=== PATIENT | female | born 1990 | race Caucasian/White ===

== ENCOUNTER 2017-11-29 15:21 | Emergency (ER) | payer SELFPAY ==
--- NOTE | 2017-11-29 16:04 | ER Report ---
History and Physical Time Seen By MD: 16:03 Hx. of Stated Complaint: Pt c/o onset of abdominal pain, vomiting x3 and GALLEGOS since 12:30 p.m. (KAYLEIGH RUSSELL MD) HPI/ROS CHIEF COMPLAINT: Abdominal pain, nausea HISTORY OF PRESENT ILLNESS: This is a 27 rolled female. She has had ongoing nausea and vomiting with some abdominal pain. No diarrhea. No blood in the stools. She did eat a significant amount of food at a restaurant last night for dinner, so she may have had some bad food exposure. No other family members or friends are sick. No [id number] medication usage. No fevers or chills. Denies any chest pain or shortness of breath at this time. Nothing makes the abdominal pain worse or better. (KAYLEIGH RUSSELL MD) Allergies: Coded Allergies: No Known Drug Allergies (Unverified , 11/29/17) Home Meds Active Scripts Ondansetron (ZOFRAN ODT) 4 Mg Tab.rapdis, 4 MG PO every 6 hours PRN for NAUSEA/VOMITING, #10 TAB TAKE 1 TABLET BY MOUTH EVERY 12 HOURS Prov:DONNIE SHIPLEY DO 11/29/17 Hydrocodone Bit/Acetaminophen (HYDROCODON-ACETAMINOPHEN 5-325) 1 Each Tablet, 1 EACH PO Q4-6H PRN for PAIN, #12 TAKE ONE TABLET BY MOUTH EVERY 4-6 HOURS NEEDED FOR PAIN Prov:DONNIE SHIPLEY DO 11/29/17 Reviewed Nurses Notes: Yes (KAYLEIGH RUSSELL MD) Constitutional Vital Sign - Last 24 Hours 11/29/17 11/29/17 11/29/17 11/29/17 15:21 15:36 15:40 15:40 Temp 97.9 Pulse ? 79 Resp 16 B/P (MAP) 121/75 (90) 121/76 Pulse Ox 96 O2 Delivery Room Air 11/29/17 11/29/17 11/29/17 11/29/17 15:51 16:06 16:21 16:36 Pulse 78 83 79 79 Pulse Ox 97 97 97 97 11/29/17 11/29/17 11/29/17 11/29/17 16:51 17:06 17:11 17:26 Pulse 81 79 81 83 Pulse Ox 96 97 95 97 11/29/17 11/29/17 11/29/17 10/20/18 17:31 17:41 17:56 18:00 Pulse 84 77 B/P (MAP) 100/62 (75) ???/??? (1664) Pulse Ox 96 96 11/29/17 11/29/17 11/29/17 11/29/17 18:11 18:26 18:30 18:41 Pulse ??? 78 83 B/P (MAP) ???/??? (1664) Pulse Ox 94 93 11/29/17 11/29/17 18:56 19:00 Pulse ??? B/P (MAP) ???/??? (1664) (DONNIE SHIPLEY DO) Physical Exam General Appearance: The patient is alert. No acute distress. Non-toxic in appearance. Eyes: Pupils are equal, round. No pallor, injection or icterus. ENT: Mucous membranes are moist. Normal oral mucosa. Posterior oropharynx is normal. Neck: Supple and non tender. Respiratory: Lungs are clear to auscultation. Cardiovascular: Regular rate and rhythm. No murmurs, gallops or rubs. Normal capillary refill. Gastrointestinal: Abdomen is soft, tender along the midline worse in the periumbilical area, no pain in the upper or lower quadrants. Nondistended. No masses or organomegaly. Hyperactive bowel sounds. No costovertebral angle tenderness with percussion. Neurological: Alert and oriented x3. No focal neurologic deficits Skin: Warm and dry. No rashes. Musculoskeletal: Extremities are nontender. No tenderness in palpation of the cervical, thoracic and lumbar spine. DIFFERENTIAL DIAGNOSIS: After history and physical exam, differential diagnosis was considered for abdominal pain including but not limited to appendicitis, cholecystitis, gastritis and urinary tract infection. ([facility] SERVICES[facility]LEIGH MD) Medical Decision Making Data Points Result Diagram: 11/29/17 1600 11/29/17 1600 Laboratory Hematology Test 11/29/17 00:00 11/29/17 16:00 Human Chorionic Gonadotropin, Qual Negative (NEGATIVE) Red Blood Count 5.08 M/uL (4.17-5.56) Mean Corpuscular Volume 88.3 fL (80.0-96.0) Mean Corpuscular Hemoglobin 30.3 pg (26.0-33.0) Mean Corpuscular Hemoglobin Concent 34.2 g/dL (32.0-36.0) Red Cell Distribution Width 13.1 % (11.5-14.5) Mean Platelet Volume 8.3 fL (7.2-11.1) Neutrophils (%) (Auto) 87.3 % (39.4-72.5) Lymphocytes (%) (Auto) 6.9 % (17.6-49.6) Monocytes (%) (Auto) 5.3 % (4.1-12.4) Eosinophils (%) (Auto) 0.1 % (0.4-6.7) Basophils (%) (Auto) 0.4 % (0.3-1.4) Nucleated RBC Relative Count (auto) 0.0 /100WBC Neutrophils # (Auto) 8.6 K/uL (2.0-7.4) Lymphocytes # (Auto) 0.7 K/uL (1.3-3.6) Monocytes # (Auto) 0.5 K/uL (0.3-1.0) Eosinophils # (Auto) 0.0 K/uL (0.0-0.5) Basophils # (Auto) 0.0 K/uL (0.0-0.1) Nucleated RBC Absolute Count (auto) 0.00 K/uL Urine Color Yellow Urine Clarity Cloudy Urine pH 5.0 pH (4.8-9.5) Urine Specific [place] 1.024 Urine Protein Negative mg/dL (NEGATIVE) Urine Glucose (UA) Negative mg/dL (NEGATIVE) Urine Ketones Negative mg/dL (NEGATIVE) Urine Blood Moderate (NEGATIVE) Urine Nitrite Negative (NEGATIVE) Urine Bilirubin Negative (NEGATIVE) Urine Urobilinogen Negative mg/dL (0.2-1.9) Urine Leukocyte Esterase Trace (NEGATIVE) Urine RBC 6 /HPF (0-2/HPF) Urine WBC 8 /HPF (0-5/HPF) Urine Squamous Epithelial Cells Many /LPF (</=FEW) Urine Bacteria Negative /HPF (NONE-FEW) Urine Mucus Few /HPF (NONE-FEW) Sodium Level 138 mmol/L (137-145) Potassium Level 3.6 mmol/L (3.5-5.0) Chloride Level 103 mmol/L (98-107) Carbon Dioxide Level 24 mmol/L (22-31) Blood Urea Nitrogen 12 mg/dl (7-18) Creatinine 0.60 mg/dl (0.52-1.04) Glomerular Filtration Rate Calc > 60.0 Random Glucose 100 mg/dl (75-110) Calcium Level 9.0 mg/dl (8.4-10.2) Total Bilirubin 0.7 mg/dl (0.2-1.3) Aspartate Amino Transf (AST/SGOT) 21 U/L (0-35) Alanine Aminotransferase (ALT/SGPT) 24 U/L (0-56) Alkaline Phosphatase 55 U/L (0-126) Total Protein 7.8 g/dl (6.3-8.2) Albumin 4.4 g/dl (3.5-5.0) Amylase Level 97 U/L (0-110) Lipase 70 U/L (23-300) Chemistry Test 11/29/17 00:00 11/29/17 16:00 Human Chorionic Gonadotropin, Qual Negative (NEGATIVE) White Blood Count 9.8 k/uL (4.5-11.0) Red Blood Count 5.08 M/uL (4.17-5.56) Hemoglobin 15.4 g/dL (12.0-16.0) Hematocrit 44.8 % (34.0-47.0) Mean Corpuscular Volume 88.3 fL (80.0-96.0) Mean Corpuscular Hemoglobin 30.3 pg (26.0-33.0) Mean Corpuscular Hemoglobin Concent 34.2 g/dL (32.0-36.0) Red Cell Distribution Width 13.1 % (11.5-14.5) Platelet Count 203 K/uL (150-450) Mean Platelet Volume 8.3 fL (7.2-11.1) Neutrophils (%) (Auto) 87.3 % (39.4-72.5) Lymphocytes (%) (Auto) 6.9 % (17.6-49.6) Monocytes (%) (Auto) 5.3 % (4.1-12.4) Eosinophils (%) (Auto) 0.1 % (0.4-6.7) Basophils (%) (Auto) 0.4 % (0.3-1.4) Nucleated RBC Relative Count (auto) 0.0 /100WBC Neutrophils # (Auto) 8.6 K/uL (2.0-7.4) Lymphocytes # (Auto) 0.7 K/uL (1.3-3.6) Monocytes # (Auto) 0.5 K/uL (0.3-1.0) Eosinophils # (Auto) 0.0 K/uL (0.0-0.5) Basophils # (Auto) 0.0 K/uL (0.0-0.1) Nucleated RBC Absolute Count (auto) 0.00 K/uL Urine Color Yellow Urine Clarity Cloudy Urine pH 5.0 pH (4.8-9.5) Urine Specific [place] 1.024 Urine Protein Negative mg/dL (NEGATIVE) Urine Glucose (UA) Negative mg/dL (NEGATIVE) Urine Ketones Negative mg/dL (NEGATIVE) Urine Blood Moderate (NEGATIVE) Urine Nitrite Negative (NEGATIVE) Urine Bilirubin Negative (NEGATIVE) Urine Urobilinogen Negative mg/dL (0.2-1.9) Urine Leukocyte Esterase Trace (NEGATIVE) Urine RBC 6 /HPF (0-2/HPF) Urine WBC 8 /HPF (0-5/HPF) Urine Squamous Epithelial Cells Many /LPF (</=FEW) Urine Bacteria Negative /HPF (NONE-FEW) Urine Mucus Few /HPF (NONE-FEW) Glomerular Filtration Rate Calc > 60.0 Calcium Level 9.0 mg/dl (8.4-10.2) Total Bilirubin 0.7 mg/dl (0.2-1.3) Aspartate Amino Transf (AST/SGOT) 21 U/L (0-35) Alanine Aminotransferase (ALT/SGPT) 24 U/L (0-56) Alkaline Phosphatase 55 U/L (0-126) Total Protein 7.8 g/dl (6.3-8.2) Albumin 4.4 g/dl (3.5-5.0) Amylase Level 97 U/L (0-110) Lipase 70 U/L (23-300) Urinalysis Test 11/29/17 16:00 Urine Color Yellow Urine Clarity Cloudy Urine pH 5.0 pH (4.8-9.5) Urine Specific [place] 1.024 Urine Protein Negative mg/dL (NEGATIVE) Urine Glucose (UA) Negative mg/dL (NEGATIVE) Urine Ketones Negative mg/dL (NEGATIVE) Urine Blood Moderate (NEGATIVE) Urine Nitrite Negative (NEGATIVE) Urine Bilirubin Negative (NEGATIVE) Urine Urobilinogen Negative mg/dL (0.2-1.9) Urine Leukocyte Esterase Trace (NEGATIVE) Urine RBC 6 /HPF (0-2/HPF) Urine WBC 8 /HPF (0-5/HPF) Urine Squamous Epithelial Cells Many /LPF (</=FEW) Urine Bacteria Negative /HPF (NONE-FEW) Urine Mucus Few /HPF (NONE-FEW) (DONNIE SHIPLEY DO) Microbiology Microbiology Date/Time Source Procedure Growth Status 11/29/17 00:00 Clean Catch Midstream Ur Urine Culture - Preliminary NO GROWTH AFTER 1 DAY, REINCUBATED Resulted (DONNIE SHIPLEY DO) EKG/Imaging Imaging X-ray: Three-way abdomen was obtained. I viewed the images myself on the PACS system. My interpretation of the images is: Chest x-rays clear without effusions or infiltrates. Abdomen is nonspecific bowel gas pattern without free air or bowel obstruction. . The radiologist interpretation had no clinically significant variation from this interpretation. (DONNIE SHIPLEY DO) ED Course/Re-evaluation Clinical Indication for ER IV: Hydration, IV Access ED Course Care was assumed at shift change from Dr. Russell with diagnostic x-rays pending. Patient was treated with IV fluid hydration. She's much improved. Her diagnostic laboratory studies are unremarkable for obvious abnormality. Patient's x-rays were unremarkable for free air obstruction or abnormal bowel gas pattern. Patient's discharged home with a conservative treatment plan for abdominal pain with bowel rest and clear liquid diet. Medicine for nausea and pain are provided for symptomatically management. Patient advised to follow-up with primary care if unimproved in 3-5 days. Decision to Disposition Date: Nov 29, 2017 Decision to Disposition Time: 18:56 (DONNIE SHIPLEY DO) Depart Departure Latest Vital Signs Vital Signs Date Time Temp Pulse Resp B/P (MAP) Pulse Ox O2 Delivery O2 Flow Rate FiO2 11/29/17 19:00 ???/??? (1665) 11/29/17 18:56 ??? 11/29/17 18:41 93 11/29/17 15:40 97.9 16 Room Air (DONNIE SHIPLEY DO) Impression: Primary Impression: Abdominal pain Additional Impression: Nausea and vomiting Condition: Improved Disposition: HOME OR SELF-CARE Referrals: NADER GARCÍA MD New Scripts Ondansetron (ZOFRAN ODT) 4 Mg Tab.rapdis 4 MG PO every 6 hours PRN for NAUSEA/VOMITING, #10 TAB TAKE 1 TABLET BY MOUTH EVERY 12 HOURS Prov: VIOLETTADONNIE Jansen DO 11/29/17 Hydrocodone Bit/Acetaminophen (HYDROCODON-ACETAMINOPHEN 5-325) 1 Each Tablet 1 EACH PO Q4-6H PRN for PAIN, #12 TAKE ONE TABLET BY MOUTH EVERY 4-6 HOURS NEEDED FOR PAIN Prov: VIOLETTADONNIE Jansen DO 11/29/17 Patient Instructions: Abdominal Pain (ED), Clear Liquid Diet (ED) Additional Instructions: Follow clear liquid diet for 24-48 hours, then advance to the brat diet, bananas, rice, applesauce and toast Take ibuprofen 200 mg 2-3 tablets 3 times a day for inflammatory pain relief Follow-up with primary care if unimproved in 3-[address] García Problem Qualifiers Primary Impression: Abdominal pain Abdominal location: epigastric Qualified Codes: R10.13 - Epigastric pain Additional Impression: Nausea and vomiting Vomiting type: unspecified Vomiting Intractability: unspecified Qualified Codes: R11.2 - Nausea with vomiting, unspecified KAYLEIGH RUSSELL MD Nov 29, 2017 16:04 DONNIE SHIPLEY DO Nov 29, 2017 18:58
[2017-11-29 16:27] LABS: PLATELET COUNT, AUTOMATED 203 K/uL (150-450)
[2017-11-29] MEDS ORDERED: ONDANSETRON 4 MG/2 ML VIAL IVP ONE (17:20)
[2017-11-29] MEDS ORDERED: KETOROLAC 30 MG/ML VIAL IVP ONE (17:20)
--- NOTE | 2017-11-29 18:27 | RADIOLOGY IMAGING REPORT ---
FACILITY: [facility] - [place] PATIENT NAME: Aaliyah Wesley : 1990 MR: [id number] V: [id number] EXAM DATE: ORDERING PHYSICIAN: KAYLEIGH GALLEGO TECHNOLOGIST: Location: [facility] - [place] Patient: Aaliyah Wesley : 1990 Visit/Account:[id number] Date of Sevice: 11/29/2017 Examination: ACUTE ABDOMEN SERIES 3 VIEW Comparison: None. History: Abdomen pain. Findings: No consolidation or nodule. No pneumothorax, edema, or effusion. Cardiac and hilar contou r size is within normal limits. No pneumoperitoneum. Bowel gas pattern is within normal limits. Small amount of stool in the colon. No soft tissue calcifications. Osseous structures are unremarkable. IMPRESSION: Negative chest and abdomen. Report Dictated By: Calvin Hill MD at 11/29/2017 6:20 PM Report E-Signed By: Calvin Hill MD at 11/29/2017 6:23 PM WSN:ALMAH-JOSE LUIS
[2017-11-29] MEDS ORDERED: ACET/HYDROC 5/325MG TH ER ONLY 2 TAB/BOTTLE PO ONE (18:55)
[2017-11-29] MEDS ORDERED: ONDANSETRON 4 MG ODT TH SL ONE (18:55)
[2017-11-29] MEDS ORDERED: LOR5/325 PO (18:57)
[2017-11-29] MEDS ORDERED: ONDA4TAB PO (18:57)
== END 2017-11-29 19:10 | disposition home or self-care (01) ==
LOC: ER 15:50
DX: R10.13 Epigastric pain (principal); R11.2 Nausea with vomiting, unspecified
CPT/HCPCS: 74022; 81001; 82150; 83690; 84703; 85025; 87088; 96374; 96375; 99284; J1885; J2405; S0119; 82040; 82247; 82310; 82374; 82435; 82565; 82947; 84075; 84132; 84155; 84295; 84450; 84460; 84520